=== PATIENT | female | born 1960 | race Asian ===

== ENCOUNTER 2019-05-21 17:39 | Emergency (ER) | payer BC ==
[~2019-05-21] VITALS: Ht 152.4 cm; Wt 56.9 kg
[2019-05-21 18:05] VITALS: Ht 152.4 cm; Wt 56.9 kg
[2019-05-21 19:10] LABS: microscopic required? YES; urine erythrocyte 3+ (NEGATIVE)
[2019-05-21 19:25] LABS: BASOPHIL % 0.7 % (0-2); PLATELET COUNT 214 x10^3mcL (130-400); RED CELL DISTRIBUTION WIDTH 12.9 % (11.5-14.5)
[2019-05-21 19:37] LABS: CALCIUM 9.7 mg/dL (8.5-10.1); CHLORIDE SERUM 106 mmol/L (98-107); CREATININE SERUM 0.8 mg/dL (0.6-1.0); GFR1 > 60 mL/min; GLUCOSE SERUM 89 mg/dL (74-106); POTASSIUM SERUM 3.9 mmol/L (3.5-5.1); SODIUM SERUM 144 mmol/L (136-145)
[2019-05-21 20:19] VITALS: BP 106/68
== END 2019-05-21 20:19 | disposition home or self-care (01) ==
LOC: ED 17:39
PROVIDERS: Emergency Medicine
DX: N39.0 Urinary tract infection, site not specified (principal); D72.829 Elevated white blood cell count, unspecified
CPT/HCPCS: 36415; J0696